=== PATIENT | female | born 1975 | race Caucasian/White ===

== ENCOUNTER 2016-10-04 17:19 | Emergency (ER) | payer OTHER ==
[~2016-10-04] VITALS: Ht 157.5 cm; Wt 77.1 kg
[~2016-10-04 17:19] MED LIST: CETI10TA16 PO; CITA20TA5 PO; CLIN300C86 PO; DICL75TA PO; DULO60CA6 PO; ESTR1TAB15 PO; HYDR25TA PO; MIRT15TA3 PO; MONT10TA6 PO; OMEP40CA5 PO; ONDA8TAB12 PO; PRAZ5CAP2 PO; SIMV10TA3 PO; TRAM50TA PO
[2016-10-04 17:35] VITALS: BP 115/71
--- NOTE | 2016-10-04 17:51 | ED.ADGEN ---
Past History Past Medical History: Anxiety, Asthma, Depression, High Cholesterol, Other Past Surgical History: Hysterectomy, Other Smoking: Cigarettes Alcohol Use: Occasionally Drug Use: None Adult General Chief Complaint Chief Complaint " ..Dr. Degroot.. sent me over to rule out appendicitis..." [facility] HPI Patient is a 40 year old female who presents with above hx and complaints of right lower quadrant pain for the past 24 hours. Patient does have history kidney stones and UTIs. No history of trauma. No history of travel. No history of bad food. Patient is having normal stools. Patient denies any dysuria. Patient normally follows Dr. Cabezas. Pt. last ate yesterday night. Did have a coke zero at 1400 hrs. Pt. had previous surgery for gallstones, tubal and ovarian cyst laparoscopic . Review of Systems Review of Systems Constitutional: Denies fever or chills [] Eyes: Denies change in visual acuity, redness, or eye pain [] HENT: Denies nasal congestion or sore throat [] Respiratory: Denies cough or shortness of breath [] Cardiovascular: No additional information not addressed in HPI [] GI: History of right lower quadrant abdominal pain. Denies, nausea, vomiting, bloody stools or diarrhea [] : Denies dysuria or hematuria [] Musculoskeletal: Denies back pain or joint pain [] Integument: Denies rash or skin lesions [] Neurologic: Denies headache, focal weakness or sensory changes [] Endocrine: Denies polyuria or polydipsia [] Family History Family History Noncontributory Current Medications Current Medications Current Medications Medications (Trade) Dose Ordered Sig/[facility] Start Time Stop Time Status Last Admin Dose Admin Famotidine (Pepcid) 20 mg 1X ONCE 10/04/16 18:15 10/04/16 18:16 DC 10/04/16 18:10 20 MG Iohexol (Omnipaque 240 Mg/ml) 50 ml STK-MED ONCE 10/04/16 18:07 10/04/16 18:08 DC Iohexol (Omnipaque 300 Mg/ml) 75 ml 1X ONCE 10/04/16 18:30 10/04/16 18:31 DC Ketorolac Tromethamine (Toradol) 30 mg 1X ONCE 10/04/16 19:15 10/04/16 19:16 DC Lactated Ringer's (Iv Lactated Ringers) 1,000 ml @ 1,000 mls/hr Q1H 10/04/16 18:00 10/04/16 19:19 DC 10/04/16 18:10 1,000 MLS/HR Ondansetron HCl (Zofran) 8 mg 1X ONCE 10/04/16 18:15 10/04/16 18:16 DC 10/04/16 18:11 8 MG Allergies Allergies Allergies Coded Allergies Type Severity Reaction Last Updated Verified Penicillins Allergy Mild Rash 08/20/15 Yes doxycycline Allergy Mild Rash 08/20/15 Yes morphine Adverse Reaction Unknown combativeness 08/20/15 Yes Physical Exam Physical Exam Constitutional: In moderately acute distress, non-toxic appearance. [] HENT: Normocephalic, atraumatic, bilateral external ears normal, oropharynx moist, no oral exudates, nose normal. [] Eyes: PERRLA, EOMI, conjunctiva normal, no discharge. [] Neck: Normal range of motion, no tenderness, supple, no stridor. [] Cardiovascular:Heart rate regular rhythm, no murmur [] Lungs & Thorax: Bilateral breath sounds equal apexes with scattered wheezes on auscultation [] Abdomen: Bowel sounds decreased, soft, right lower quadrant tenderness, no masses, no pulsatile masses. Mild rebound to right lower quadrant. She declines rectal and pelvic exam at this time. Obese. Old surgical scars. Skin: Warm, dry, no erythema, no rash. [] Back: No tenderness, no CVA tenderness. [] Extremities: No tenderness, no cyanosis, no clubbing, ROM intact, no edema. Minimal psoas or heeltap Neurologic: Alert and oriented X 3, normal motor function, normal sensory function, no focal deficits noted. [] Psychologic: Affect anxious, judgement normal, mood normal. [] Current Patient Data Vital Signs Vital Signs Date Time Temp Pulse Resp B/P Pulse Ox O2 Delivery O2 Flow Rate FiO2 10/04/16 17:35 98.7 18 18 70 Room Air Lab Results Laboratory Tests Test 10/04/16 18:06 White Blood Count 10.0x10^3/uL (4.0-11.0) Red Blood Count 4.55x10^6/uL (3.50-5.40) Hemoglobin 14.0g/dL (12.0-15.5) Hematocrit 41.9% (36.0-47.0) Mean Corpuscular Volume 92fL (79-100) Mean Corpuscular Hemoglobin 31pg (25-35) Mean Corpuscular Hemoglobin Concent 34g/dL (31-37) Red Cell Distribution Width 13.8% (11.5-14.5) Platelet Count 228x10^3/uL (140-400) Neutrophils (%) (Auto) 67% (31-73) Lymphocytes (%) (Auto) 25% (24-48) Monocytes (%) (Auto) 7% (0-9) Eosinophils (%) (Auto) 1% (0-3) Basophils (%) (Auto) 1% (0-3) Neutrophils # (Auto) 6.7x10^3uL (1.8-7.7) Lymphocytes # (Auto) 2.5x10^3/uL (1.0-4.8) Monocytes # (Auto) 0.7x10^3/uL (0.0-1.1) Eosinophils # (Auto) 0.1x10^3/uL (0.0-0.7) Basophils # (Auto) 0.0x10^3/uL (0.0-0.2) Prothrombin Time 10.4SEC (9.4-11.4) Prothrombin Time INR 1.0 (0.9-1.1) PTT 28SEC (23-33) Urine Collection Type Unknown Urine Color Yellow Urine Clarity Clear Urine pH 7.0 Urine Specific [place] 1.020 Urine Protein Neg (NEG-TRACE) Urine Glucose (UA) Negmg/dL (NEG) Urine Ketones (Stick) Negmg/dL (NEG) Urine Blood Trace (NEG) Urine Nitrite Neg (NEG) Urine Bilirubin Neg (NEG) Urine Urobilinogen Dipstick 0.2mg/dL (0.2 mg/dL) Urine Leukocyte Esterase Neg (NEG) Urine RBC 0/HPF (0-2) Urine WBC Occ/HPF (0-4) Urine Squamous Epithelial Cells Occ/LPF Urine Bacteria Few/HPF (0-FEW) Urine Mucus Slight/LPF Maternal Serum HCG Beta Subunit 4mIU/mL (0-6) Sodium Level 137mmol/L (136-145) Potassium Level 3.8mmol/L (3.5-5.1) Chloride Level 102mmol/L (98-107) Carbon Dioxide Level 26mmol/L (21-32) Anion Gap 9 (6-14) Blood Urea Nitrogen 10mg/dL (7-20) Creatinine 1.1mg/dL (0.6-1.0) H Estimated GFR (Cockcroft-Gault) 55.3 Glucose Level 86mg/dL (70-99) Calcium Level 9.3mg/dL (8.5-10.1) Total Bilirubin 0.5mg/dL (0.2-1.0) Direct Bilirubin 0.1mg/dL (0.0-0.2) Aspartate Amino Transferase (AST) 15U/L (15-37) Alanine Aminotransferase (ALT) 25U/L (14-59) Alkaline Phosphatase 85U/L (46-116) Total Protein 7.6g/dL (6.4-8.2) Albumin 4.3g/dL (3.4-5.0) Amylase Level 42U/L (25-115) Lipase 66U/L (73-393) L Urine Opiates Screen Neg (NEG) Urine Methadone Screen Neg (NEG) Urine Barbiturates Neg (NEG) Urine Phencyclidine Screen Neg (NEG) Urine Amphetamine/Methamphetamine Neg (NEG) Urine Benzodiazepines Screen Pos (NEG) Urine Cocaine Screen Neg (NEG) Urine Cannabinoids Screen Pos (NEG) Urine Ethyl Alcohol Neg (NEG) EKG EKG [] Radiology/Procedures Radiology/Procedures My interpretation of abdomen film shows no free air under the diaphragm. Nonspecific bowel gas pattern .[] CT shows no acute surgical processes. See formal report when available Course & Med Decision Making Course & Med Decision Making Pertinent Labs and Imaging studies reviewed. (See chart for details). She stay on a clear fluid diet only for the next 2 days. No solid no milk products clear fluids only to allow bowel rest. Follow-up primary care. Return if any concerns. Tylenol and ibuprofen for pain. For marked pain may take Vicoprofen up 4 times a day. Follow-up all labs and x-rays with primary care. She encouraged stop smoking. Patient encouraged fluid intake. [] Final Impression Final Impression 1. Abdomen Pain[] 2. Tobacco use 3. Marijuana use 4. Elevated creatinine Problems: Dragon Disclaimer Dragon Disclaimer This electronic medical record was generated, in whole or in part, using a voice recognition dictation system. JAYLA CHUA MD Oct 04, 2016 17:51
[2016-10-04] MEDS ORDERED: IV RINGERS SOLUTION,LACTATED 1,000 ML IV SCH (18:00)
[2016-10-04] MEDS ORDERED: IOHEXOL 240 MG/ML 50ML VIAL. ONE (18:07)
[2016-10-04] MEDS ORDERED: FAMOTIDINE 20 MG/2 ML VIAL IVP ONE (18:15)
[2016-10-04] MEDS ORDERED: ONDANSETRON PF 4 MG/2 ML VIAL. IV ONE (18:15)
[2016-10-04 18:24] LABS: BASO % 1 % (0-3); EOS # 0.1 x10^3/uL (0.0-0.7); EOS % 1 % (0-3); HEMATOCRIT 41.9 % (36.0-47.0); LYMPH # 2.5 x10^3/uL (1.0-4.8); LYMPH % 25 % (24-48); MEAN CORPUSCULAR HEMOGLOBIN 31 pg (25-35); MEAN CORPUSCULAR HGB CONC 34 g/dL (31-37); MEAN CORPUSCULAR VOLUME 92 fL (79-100); MONO # 0.7 x10^3/uL (0.0-1.1); MONO % 7 % (0-9); NEUT # 6.7 x10^3uL (1.8-7.7); NEUT % 67 % (31-73); PLATELET COUNT 228 x10^3/uL (140-400); RED BLOOD COUNT 4.55 x10^6/uL (3.50-5.40); RED CELL DISTRIBUTION WIDTH 13.8 % (11.5-14.5)
[2016-10-04] MEDS ORDERED: IOHEXOL 300 MG/ML 75 ML VIAL. IV ONE (18:30)
[2016-10-04 18:33] LABS: BARBITURATES NEG (NEG); BENZODIAZEPINES POS (NEG); CANNABINOIDS POS (NEG); COCAINE NEG (NEG); METHADONE NEG (NEG); OPIATES NEG (NEG); PHENCYCLIDINE NEG (NEG)
[2016-10-04 18:34] LABS: BACTERIA,URINE FEW /HPF (0-FEW); BILIRUBIN,URINE NEG (NEG); CLARITY,URINE CLEAR; COLOR,URINE YELLOW; GLUCOSE,URINE NEG (NEG); NITRITE,URINE NEG (NEG); RBC,URINE 0 /HPF (0-2); SQUAMOUS EPITHELIAL CELL,UR OCC /LPF; UROBILINOGEN,URINE 0.2 mg/dL (0.2 mg/dL); WBC,URINE OCC /HPF (0-4)
[2016-10-04 18:36] LABS: AMPHETAMINE/METHAMPHETAMINE NEG (NEG)
--- NOTE | 2016-10-04 18:48 | RAD ---
PROCEDURE CT abdomen and pelvis without intravenous contrast. HISTORY Right flank pain. TECHNIQUE Helical CT of the abdomen and pelvis was performed without intravenous or oral contrast. Exposure: One or more of the following individualized dose reduction techniques were utilized for this examination: 1. Automated exposure control. 2. Adjustment of the mA and/or kV according to patient size. 3. Use of iterative reconstruction technique. COMPARISON CT abdomen pelvis March 13, 2015. FINDINGS Evaluation of solid organs is limited by lack of intravenous contrast. Evaluation of enteric structures may be limited by lack of oral contrast. Liver, spleen, pancreas, gallbladder, and bilateral adrenal glands are unremarkable. Bilateral kidneys and ureters free of stone or obstruction. No bowel obstruction or inflammation is seen. Appendix is without inflammation. Urinary bladder is unremarkable. Uterus is absent. No free air free fluid is seen in the abdomen or pelvis. IMPRESSION No acute abnormality identified in the abdomen or pelvis. No evidence of urinary stone. Electronically signed by: Charles Lowe MD (Oct 04, 2016 18:47:16)
[2016-10-04 18:58] LABS: ALBUMIN 4.3 g/dL (3.4-5.0); CALCIUM 9.3 mg/dL (8.5-10.1); CREATININE 1.1 mg/dL (0.6-1.0); DIRECT BILIRUBIN 0.1 mg/dL (0.0-0.2); GFR 55.3; POTASSIUM 3.8 mmol/L (3.5-5.1); TOTAL BILIRUBIN 0.5 mg/dL (0.2-1.0); TOTAL PROTEIN 7.6 g/dL (6.4-8.2)
[2016-10-04] MEDS ORDERED: ONDA8TAB12 PO (19:03)
[2016-10-04] MEDS ORDERED: HYDR-79 PO (19:03)
[2016-10-04] MEDS ORDERED: KETOROLAC 30 MG/ML VIAL. IV ONE (19:15)
--- NOTE | 2016-10-05 09:05 | RAD ---
Acute abdomen series with chest, 3 views, 10/04/2016: History: Abdominal and right flank pain The abdominal gas pattern is unremarkable without evidence of obstruction. No free air is seen in the abdomen. There is no evidence of organomegaly or abnormal abdominal calcification. The heart size is normal. The lungs are clear. There is no evidence of pleural fluid. IMPRESSION: No acute abdominal abnormality is detected.
== END 2016-10-04 19:14 | disposition home or self-care (01) ==
LOC: ER 17:19
DX: R10.31 Right lower quadrant pain (principal); E78.00 Pure hypercholesterolemia, unspecified; J45.909 Unspecified asthma, uncomplicated; F12.10 Cannabis abuse, uncomplicated; F17.210 Nicotine dependence, cigarettes, uncomplicated; Z90.710 Acquired absence of both cervix and uterus; Z87.442 Personal history of urinary calculi; Z88.5 Allergy status to narcotic agent; Z88.0 Allergy status to penicillin; Z88.1 Allergy status to other antibiotic agents
CPT/HCPCS: 36415; 74022; 74176; 80048; 80076; 80305; 81001; 82150; 83690; 84702; 85027; 85610; 85730; 96361; 96374; 96375; 99285; J2405; J7120; S0028; G0481

== ENCOUNTER 2017-03-02 09:31 | Emergency (ER) | payer SELFPAY ==
[~2017-03-02] VITALS: Ht 157.5 cm; Wt 67.6 kg
[~2017-03-02 09:31] MED LIST changes: +CLIN300C8 PO; -CLIN300C86 PO; +HYDR-79 PO
[2017-03-02] MEDS ORDERED: predniSONE 10 MG TABLET PO ONE (10:00)
[2017-03-02] MEDS ORDERED: IPRATRPIUM/ALBUTEROL 0.5/2.5MG 3 ML NEBU. NEB ONE (10:00)
[2017-03-02] MEDS ORDERED: ALBU8.5H8 INH (10:16)
[2017-03-02] MEDS ORDERED: PRED50TA PO (10:16)
--- NOTE | 2017-03-02 10:16 | PHYS DOC ---
Past History Past Medical History: Anxiety, Asthma, Depression, High Cholesterol, Other Past Surgical History: Hysterectomy, Other Smoking: Cigarettes Alcohol Use: None Drug Use: None Adult General Chief Complaint Chief Complaint: COUGH HPI HPI This is a pleasant 41-year-old female presenting to the emergency department with a cough and wheezing over the past 7 days. She reports associated sinus pressure in the front of her head along with bilateral earache and feeling "congested." Her cough is intermittent it is nonproductive she denies any pain in her chest. She has mild pain/pressure in her sinuses that is intermittent nonradiating without leaving factors. She denies having a fever at home or chills. Review of systems is negative for chest pain abdominal pain nausea vomiting diaphoresis fevers or chills. All other review of systems is negative unless otherwise noted in history of present illness. ED course: 41-year-old female presenting to the emergency department today with cough and sinus related congestion. Triage vital signs show the patient to be afebrile here with mild increased heart rate. Pertinent physical exam findings show the patient to have diffuse wheezing throughout all lung [place]. She is breathing comfortably on room air and is not hypoxic. Otherwise she has a nontender abdomen and the remainder of her exam is unremarkable including normal appearing tympanic membranes bilaterally in mild pain to palpation of the frontal sinus. I recommend nasal washes and Flonase for her sinus pressure for of probable viral acute sinusitis. No evidence of otitis media. She does have diffuse wheezing suggestive of an acute asthma exacerbation for which I prescribed the patient prednisone along with the nebulized albuterol and ipratropium here in the emergency department. On reexamination the patient's wheezing was much improved. She was subsequent discharged home with albuterol and prednisone short burst. X-ray obtained which did not show any evidence of pneumonia. The patient was then discharged home in stable condition to follow up with their primary care physician over the next 2-3 days. They were to return if their symptoms worsened or if they were concerned for any reason. Face -to-face discharge instructions and return precautions were given. Patient's questions were answered to their satisfaction. Patient is comfortable plan. Review of Systems Review of Systems SEE ABOVE. Current Medications Current Medications Current Medications Medications (Trade) Dose Ordered Sig/[facility] Start Time Stop Time Status Last Admin Dose Admin Albuterol/ Ipratropium (Duoneb) 3 ml 1X ONCE 03/02/17 10:00 03/02/17 10:01 DC 03/02/17 09:59 3 ML Prednisone (Prednisone) 50 mg 1X ONCE 03/02/17 10:00 03/02/17 10:01 DC Allergies Allergies Allergies Coded Allergies Type Severity Reaction Last Updated Verified Penicillins Allergy Mild Rash 08/20/15 Yes doxycycline Allergy Mild Rash 08/20/15 Yes morphine Adverse Reaction Unknown combativeness 08/20/15 Yes Physical Exam Physical Exam See above Constitutional: Well developed, well nourished, no acute distress, non-toxic appearance. [] HENT: Normocephalic, atraumatic, bilateral external ears normal, oropharynx moist, no oral exudates, nose normal. []See above Eyes: PERRLA, EOMI, conjunctiva normal, no discharge. [] Neck: Normal range of motion, no tenderness, supple, no stridor. [] Cardiovascular:Heart rate regular rhythm, no murmur [] Lungs & Thorax: See above Abdomen: Bowel sounds normal, soft, no tenderness, no masses, no pulsatile masses. [] Skin: Warm, dry, no erythema, no rash. [] Back: No tenderness, no CVA tenderness. [] Extremities: No tenderness, no cyanosis, no clubbing, ROM intact, no edema. [] Neurologic: Alert and oriented X 3, normal motor function, normal sensory function, no focal deficits noted. [] Psychologic: Affect normal, judgement normal, mood normal. [] Current Patient Data Vital Signs Vital Signs Date Time Temp Pulse Resp B/P (MAP) Pulse Ox O2 Delivery O2 Flow Rate FiO2 03/02/17 09:59 96 Room Air EKG EKG [] Radiology/Procedures Radiology/Procedures [] Course & Med Decision Making Course & Med Decision Making Pertinent Labs and Imaging studies reviewed. (See chart for details) [] Dragon Disclaimer Dragon Disclaimer This chart was dictated in whole or in part using Voice Recognition software in a busy, high-work load, and often noisy Emergency Department environment. It may contain unintended and wholly unrecognized errors or omissions. Departure Departure: Impression: Primary Impression: Acute asthma exacerbation Additional Impressions: Sinusitis Congestion of both ears Disposition: HOME, SELF-CARE Condition: STABLE Referrals: PCP,NO (PCP) Patient Instructions: Asthma, Adult, Cough, Adult, Sinusitis Additional Instructions: Thank you for allowing us to participate in your care today. Followup with your primary care physician in 3 days if your symptoms do not improve. Call your Primary Doctor tomorrow and inform them of your visit today. If you do not have a primary care provider you can ask for a list of our primary care providers. Return to the emergency department you have any new or concerning findings. This should be evaluated by the primary care physician and any necessary consulting services for continued management within a few days after discharge. Return to emergency room if you have any new or concerning symptoms including but not limited to fever, chills, nausea, vomiting, intractable pain, any new rashes, chest pain, shortness of air, uncontrolled bleeding, difficulty breathing, and/or vision loss. Scripts Prednisone (PREDNISONE) 50 Mg Tablet 1 TAB PO DAILY, #4 TAB You received this medication in the emergency room today. You will starting your next dose tomorrow. Prov: YOHAN WEINBERG MD 03/02/17 Albuterol Sulfate (PROAIR HFA INHALER) 8.5 Gm Hfa.aer.ad 1 PUFF INH PRN Q6HRS Y for SHORTNESS OF BREATH, #1 INHALER 0 Refills Prov: YOHAN WEINBERG MD 03/02/17 Problem Qualifiers YOHAN WEINBERG MD Mar 02, 2017 10:16
--- NOTE | 2017-03-02 10:19 | RAD ---
PA and lateral chest radiographs 03/02/2017 Clinical History: Productive cough. PA and lateral digital radiographs of the chest were obtained. Comparison study is dated 10/04/2016. The cardiac and mediastinal silhouettes are within normal limits in size and configuration. No pulmonary infiltrate is seen. No pleural effusion or pneumothorax is noted. The osseous structures are grossly intact. Impression: No radiographic evidence of active cardiopulmonary disease.
[2017-03-02 10:25] VITALS: BP 123/68
== END 2017-03-02 10:25 | disposition home or self-care (01) ==
LOC: ER 09:31
DX: J45.901 Unspecified asthma with (acute) exacerbation (principal); H83.8X3 Other specified diseases of inner ear, bilateral; E78.00 Pure hypercholesterolemia, unspecified; F17.210 Nicotine dependence, cigarettes, uncomplicated; Z88.1 Allergy status to other antibiotic agents; Z88.5 Allergy status to narcotic agent; Z88.0 Allergy status to penicillin
CPT/HCPCS: 71020; 94640; 99284; J7512; J7620

== ENCOUNTER 2017-06-19 19:44 | Emergency (ER) | payer SELFPAY ==
[~2017-06-19] VITALS: Ht 157.5 cm; Wt 69.4 kg
[~2017-06-19 19:44] MED LIST changes: +ALBU8.5H8 INH; +PRED50TA PO
[2017-06-19 19:50] VITALS: BP 133/49
--- NOTE | 2017-06-19 19:54 | ED.ADGEN ---
Past History Past Medical History: Anxiety, Asthma, Depression, GERD, High Cholesterol, Other Past Surgical History: Hysterectomy, Other Smoking: Cigarettes Alcohol Use: None Drug Use: None Adult General Chief Complaint Chief Complaint " I fell on monday.. and my Lt hip, thigh, back and Lt knee still hurt...".. " I was hanging [employer] lights..."and tripped over the wire.." HPI HPI Patient is a 41 year old female who presents with Lt knee, hip, back, flank and shoulder pain from fall or tripping on [place] decorations this monday. Distal neurovascular intact. There is findings of contusions to areas of fall. Patient is ambulatory without problems. There is some para- Spinal lumbar spasms. No problems with defecation or urination. Review of Systems Review of Systems Constitutional: Denies fever or chills [] Eyes: Denies change in visual acuity, redness, or eye pain [] HENT: Denies nasal congestion or sore throat [] Respiratory: Denies cough or shortness of breath [] Cardiovascular: No additional information not addressed in HPI [] GI: Denies abdominal pain, nausea, vomiting, bloody stools or diarrhea [] : Denies dysuria or hematuria [] Musculoskeletal: Complains of left shoulder, left flank, left hip, left thigh , back pain . Integument: Denies rash or skin lesions [] Neurologic: Denies headache, focal weakness or sensory changes [] Endocrine: Denies polyuria or polydipsia [] All other systems were reviewed and found to be within normal limits, except as documented in this note. Family History Family History Noncontributory Current Medications Current Medications Current Medications Medications (Trade) Dose Ordered Sig/[facility] Start Time Stop Time Status Last Admin Dose Admin Ketorolac Tromethamine (Toradol) 60 mg 1X ONCE 06/19/17 21:30 06/19/17 21:31 DC 06/19/17 22:10 60 MG Orphenadrine Citrate (Norflex) 60 mg 1X ONCE 06/19/17 21:30 06/19/17 21:31 DC 06/19/17 22:10 60 MG Allergies Allergies Allergies Coded Allergies Type Severity Reaction Last Updated Verified Penicillins Allergy Mild Rash 08/20/15 Yes doxycycline Allergy Mild Rash 08/20/15 Yes morphine Adverse Reaction Unknown combativeness 08/20/15 Yes Physical Exam Physical Exam Constitutional: Mild to moderate distress, non-toxic appearance. [] HENT: Normocephalic, atraumatic, bilateral external ears normal, oropharynx moist, no oral exudates, nose normal. [] Eyes: PERRLA, EOMI, conjunctiva normal, no discharge. [] Neck: Normal range of motion, no tenderness, supple, no stridor. [] Cardiovascular:Heart rate regular rhythm, no murmur [] Lungs & Thorax: Bilateral breath sounds equal scattered wheezes auscultation [] Abdomen: Bowel sounds normal, soft, no tenderness, no masses, no pulsatile masses. Old surgery scar. Except Contusion left hip and left flank. Skin: Warm, dry, no erythema, no rash. [] Back: Lumbar muscle tenderness, no CVA tenderness. [] Extremities: No tenderness, no cyanosis, no clubbing, ROM intact, no edema. Except Left shoulder contusion. Left thigh contusion. Left hip contusion and left knee contusion Neurologic: Alert and oriented X 3, normal motor function, normal sensory function, no focal deficits noted. [DTRs 2 patella and brachial Psychologic: Affect anxious , judgement normal, mood normal. [] Current Patient Data Vital Signs Vital Signs Date Time Temp Pulse Resp B/P (MAP) Pulse Ox O2 Delivery O2 Flow Rate FiO2 06/19/17 19:50 97.9 94 22 99 Room Air EKG EKG [] Radiology/Procedures Radiology/Procedures Interpretation of x-ray films of shoulder, pelvis and hip, show no fracture or dislocation. Does have degenerative joint changes. CT of lumbar shows no obvious acute compression fracture does have findings of degenerative joint changes.[] Course & Med Decision Making Course & Med Decision Making Pertinent Labs and Imaging studies reviewed. (See chart for details). Ice packs when necessary. Take Tylenol and ibuprofen for pain. Follow-up primary care. May take Vicoprofen up 4 times a day for marked discomfort. Must follow-up primary care. [] Final Impression Final Impression 1. Contusion[] left shoulder, left hip, left thigh, left flank, left shoulder 2. Strain lower back Problems: Dragon Disclaimer Dragon Disclaimer This electronic medical record was generated, in whole or in part, using a voice recognition dictation system. JAYLA CHUA MD Jun 19, 2017 19:54
--- NOTE | 2017-06-19 21:16 | RAD ---
CT lumbar spine without contrast History: Pain status post fall Axial helical images of the lumbar spine were obtained without contrast. Axial, coronal and sagittal reconstruction was performed. Findings: The vertebral bodies are aligned. There is no loss of vertebral body stature. Evaluation of the central canal is limited without contrast. There is no evidence of significant central or neuroforaminal stenosis. Impression: No acute findings. PQRS Compliance Statement: One or more of the following individualized dose reduction techniques were utilized for this examination: 1. Automated exposure control 2. Adjustment of the mA and/or kV according to patient size 3. Use of iterative reconstruction technique Electronically signed by: Tarik Kimble III, MD (06/19/2017 9:14 PM) [facility]
[2017-06-19] MEDS ORDERED: ORPHENADRINE CITRATE 60 MG/2 ML VIAL. IM ONE (21:30)
[2017-06-19] MEDS ORDERED: KETOROLAC 60 MG/2 ML VIAL. IM ONE (21:30)
[2017-06-19] MEDS ORDERED: HYDR-79 PO (21:36)
--- NOTE | 2017-06-20 07:56 | RAD ---
Knee x-rays Indication: Injury on 06/18/2017. Severe left knee pain Technique: 4 views of the left knee Comparison: None Findings: No acute fracture or dislocation. No joint effusion. No soft tissue abnormality. Impression: No acute findings.
--- NOTE | 2017-06-20 08:06 | RAD ---
Pelvic x-ray Indication:, Technique: Single AP view of the pelvis Comparison: None Findings: No acute fracture or dislocation on this single view provided. SI joints within normal limits. No soft tissue abnormality. Impression: No acute findings.
--- NOTE | 2017-06-20 08:06 | RAD ---
Hip x-rays Indication: Injury Technique: 2 views of the left hip joint Comparison: None Findings: No acute fracture or dislocation. No soft tissue abnormality. Impression: As above.
== END 2017-06-19 22:17 | disposition home or self-care (01) ==
LOC: ER 19:44
DX: S39.012A Strain of muscle, fascia and tendon of lower back, initial encounter (principal); S40.012A Contusion of left shoulder, initial encounter; S70.02XA Contusion of left hip, initial encounter; S70.12XA Contusion of left thigh, initial encounter; S30.1XXA Contusion of abdominal wall, initial encounter; E78.00 Pure hypercholesterolemia, unspecified; K21.9 Gastro-esophageal reflux disease without esophagitis; J45.909 Unspecified asthma, uncomplicated; F41.9 Anxiety disorder, unspecified; F32.9 Major depressive disorder, single episode, unspecified; F17.210 Nicotine dependence, cigarettes, uncomplicated; Z88.0 Allergy status to penicillin; Z88.1 Allergy status to other antibiotic agents; Z88.5 Allergy status to narcotic agent; W18.09XA Striking against other object with subsequent fall, initial encounter; Y93.89 Activity, other specified; Y99.8 Other external cause status; Y92.89 Other specified places as the place of occurrence of the external cause
CPT/HCPCS: 72131; 72170; 73502; 73564; 96372; 99284; J1885; J2360

== ENCOUNTER 2018-05-04 16:44 | Emergency (ER) | payer OTHER ==
[~2018-05-04 16:44] MED LIST changes: -CITA20TA5 PO; +CITA20TA6 PO
[2018-05-04 16:50] VITALS: BP 128/76
--- NOTE | 2018-05-04 17:20 | PHYS DOC ---
Past History Past Medical History: Anxiety, Asthma, Depression, GERD, High Cholesterol, Other Past Surgical History: Hysterectomy, Other Smoking: Cigarettes Alcohol Use: None Drug Use: None Adult General Chief Complaint Chief Complaint: MEDICATION REFILL HPI HPI 42-year-old female presents with left knee pain. The patient had a knee scope with arthroscopic repair and bone spur removal on May 01. She was discharged with 30 [place] 5/325. Patient has been taking 2 every 5 hours and she is out of them. She is away from the location was the surgeon is. They offered to give her more medication but she had to come to absent. The patient's car is not working. She was unable to get absent. Her local physician told her she would have to come to the emergency room because he did not have any family appointments. She denies fever or chills. She is only here for medication refill. Review of Systems Review of Systems Constitutional: Denies fever or chills [] Eyes: Denies change in visual acuity, redness, or eye pain [] HENT: Denies nasal congestion or sore throat [] Respiratory: Denies cough or shortness of breath [] Cardiovascular: No additional information not addressed in HPI [] GI: Denies abdominal pain, nausea, vomiting, bloody stools or diarrhea [] : Denies dysuria or hematuria [] Musculoskeletal: Left knee pain[] Integument: Denies rash or skin lesions [] Neurologic: Denies headache, focal weakness or sensory changes [] Endocrine: Denies polyuria or polydipsia [] All other systems were reviewed and found to be within normal limits, except as documented in this note. Allergies Allergies Allergies Coded Allergies Type Severity Reaction Last Updated Verified Penicillins Allergy Mild Rash 08/20/15 Yes doxycycline Allergy Mild Rash 08/20/15 Yes morphine Adverse Reaction Unknown combativeness 08/20/15 Yes Physical Exam Physical Exam Constitutional: Well developed, well nourished, no acute distress, non-toxic appearance. [] HENT: Normocephalic, atraumatic, bilateral external ears normal, oropharynx moist, no oral exudates, nose normal. [] Eyes: PERRLA, EOMI, conjunctiva normal, no discharge. [] Neck: Normal range of motion, no tenderness, supple, no stridor. [] Cardiovascular:Heart rate regular rhythm, no murmur [] Lungs & Thorax: Bilateral breath sounds clear to auscultation [] Abdomen: Bowel sounds normal, soft, no tenderness, no masses, no pulsatile masses. [] Skin: Warm, dry, no erythema, no rash. [] Back: No tenderness, no CVA tenderness. [] Extremities: Ecchymosis around the left knee. Mild swelling. Consistent with recent surgery.[] Neurologic: Alert and oriented X 3, normal motor function, normal sensory function, no focal deficits noted. [] Psychologic: Affect normal, judgement normal, mood normal. [] EKG EKG [] Radiology/Procedures Radiology/Procedures [] Course & Med Decision Making Course & Med Decision Making Pertinent Labs and Imaging studies reviewed. (See chart for details) I reviewed the patient's narcotic online database and found her prescription history to be accurate to what she told me. I informed her that I'm only able to give her a short prescription of 10 pills and that she must make them last. She states she will try to take one of the time and spread out the time. I will discharge her with 10 [place] 5/325. She is stable for discharge at this time. [] Dragon Disclaimer Dragon Disclaimer This electronic medical record was generated, in whole or in part, using a voice recognition dictation system. Departure Departure: Referrals: NATI GUADALUPE MD (PCP) NATALI ARROYO DO May 04, 2018 17:20
[2018-05-04] MEDS ORDERED: HYDR-971 PO (17:30)
== END 2018-05-04 17:32 | disposition home or self-care (01) ==
LOC: ER 16:44
DX: M25.562 Pain in left knee (principal); G89.18 Other acute postprocedural pain; F41.9 Anxiety disorder, unspecified; J45.909 Unspecified asthma, uncomplicated; F32.9 Major depressive disorder, single episode, unspecified; K21.9 Gastro-esophageal reflux disease without esophagitis; E78.00 Pure hypercholesterolemia, unspecified; F17.210 Nicotine dependence, cigarettes, uncomplicated; Z88.0 Allergy status to penicillin; Z88.1 Allergy status to other antibiotic agents; Z88.5 Allergy status to narcotic agent
CPT/HCPCS: 99283

== ENCOUNTER 2018-10-26 15:16 | Emergency (ER) | payer OTHER ==
[~2018-10-26] VITALS: Ht 157.5 cm; Wt 77.1 kg
[~2018-10-26 15:16] MED LIST changes: +ALBU2.5V8 INH; -ALBU8.5H8 INH; +HYDR-1179 PO; +HYDR-3165 PO; -HYDR-79 PO
--- NOTE | 2018-10-26 15:46 | PHYS DOC ---
Past History Past Medical History: Anxiety, Asthma, Depression, GERD, High Cholesterol, Other Past Surgical History: Hysterectomy, Other Smoking: Cigarettes Alcohol Use: None Drug Use: None Adult General Chief Complaint Chief Complaint: BACK PAIN - NO INJURY HPI HPI 43-year-old female presents with sudden onset back pain. Patient states that she had sudden back pain that woke her from her sleep between her shoulder blades. This happened at 4 AM. It has continued to bother her all day so she came emergency room. Patient states it hurts more with deep breathing, but she does not feel short of breath. She cannot think of anything that she did yesterday that would've caused her to have pain. She denies any recent trauma. She has no cardiac history. She is a cigarette smoker. She denies fever or chills. Review of Systems Review of Systems Constitutional: Denies fever or chills [] Eyes: Denies change in visual acuity, redness, or eye pain [] HENT: Denies nasal congestion or sore throat [] Respiratory: Denies cough or shortness of breath [] Cardiovascular: No additional information not addressed in HPI [] GI: Denies abdominal pain, nausea, vomiting, bloody stools or diarrhea [] : Denies dysuria or hematuria [] Musculoskeletal: Thoracic back pain[] Integument: Denies rash or skin lesions [] Neurologic: Denies headache, focal weakness or sensory changes [] Endocrine: Denies polyuria or polydipsia [] All other systems were reviewed and found to be within normal limits, except as documented in this note. Allergies Allergies Allergies Coded Allergies Type Severity Reaction Last Updated Verified Penicillins Allergy Mild Rash 08/20/15 Yes doxycycline Allergy Mild Rash 08/20/15 Yes morphine Adverse Reaction Unknown combativeness 08/20/15 Yes Physical Exam Physical Exam Constitutional: Well developed, well nourished, no acute distress, non-toxic appearance. [] HENT: Normocephalic, atraumatic, bilateral external ears normal, oropharynx moist, no oral exudates, nose normal. [] Eyes: PERRLA, EOMI, conjunctiva normal, no discharge. [] Neck: Normal range of motion, no tenderness, supple, no stridor. [] Cardiovascular:Heart rate regular rhythm, no murmur [] Lungs & Thorax: Bilateral breath sounds clear to auscultation [] Abdomen: Bowel sounds normal, soft, no tenderness, no masses, no pulsatile masses. [] Skin: Warm, dry, no erythema, no rash. [] Back: No tenderness, no CVA tenderness. [] Extremities: No tenderness, no cyanosis, no clubbing, ROM intact, no edema. [] Neurologic: Alert and oriented X 3, normal motor function, normal sensory function, no focal deficits noted. [] Psychologic: Affect normal, judgement normal, mood normal. [] Current Patient Data Vital Signs Vital Signs Date Time Temp Pulse Resp B/P (MAP) Pulse Ox O2 Delivery O2 Flow Rate FiO2 10/26/18 15:30 98.3 77 18 99 Room Air EKG EKG Sinus rhythm, rate 69, normal axis, no ST elevations or depressions.[] Radiology/Procedures Radiology/Procedures [] Impressions: AP and Lateral Views of the Chest 10/26/2018 4:45 PM Indication: SHORT OF BREATH Comparison: Chest radiograph March 02, 2017 Findings: There is no focal consolidation or infiltrate identified. The cardiomediastinal silhouette is within normal limits. There is no evidence of pneumothorax or pleural effusion. No acute osseous abnormalities are identified. Impression: No evidence of acute cardiopulmonary process. Electronically signed by: Kavin Pena MD (10/26/2018 3:59 PM) [id number] DICTATED AND SIGNED BY: KAVIN PENA MD DATE: 10/26/18 1559 CC: NATALI ARROYO DO; NATI GUADALUPE MD ~ Course & Med Decision Making Course & Med Decision Making Pertinent Labs and Imaging studies reviewed. (See chart for details) The patient's chest x-ray is unremarkable. Her labs are unremarkable. Her EKG is unremarkable. The patient has musculoskeletal pain and is just unable to identify the inciting event. I will advise insulin therapies. She is stable for discharge at this time. [] Dragon Disclaimer Dragon Disclaimer This electronic medical record was generated, in whole or in part, using a voice recognition dictation system. Departure Departure: Impression: Primary Impression: Thoracic back pain Disposition: HOME, SELF-CARE Condition: STABLE Referrals: NATI GUADALUPE MD (PCP) Patient Instructions: Thoracic Strain, [id number] Problem Qualifiers Primary Impression: Thoracic back pain Chronicity: acute Back pain laterality: midline Qualified Codes: M54.6 - Pain in thoracic spine NATALI ARROYO DO Oct 26, 2018 15:46
--- NOTE | 2018-10-26 16:02 | RAD ---
AP and Lateral Views of the Chest 10/26/2018 4:45 PM Indication: SHORT OF BREATH Comparison: Chest radiograph March 02, 2017 Findings: There is no focal consolidation or infiltrate identified. The cardiomediastinal silhouette is within normal limits. There is no evidence of pneumothorax or pleural effusion. No acute osseous abnormalities are identified. Impression: No evidence of acute cardiopulmonary process. Electronically signed by: Kavin Salvador MD (10/26/2018 3:59 PM) [id number]
[2018-10-26 16:08] LABS: BASO # 0.1 x10^3/uL (0.0-0.2); BASO % 1 % (0-3); EOS # 0.3 x10^3/uL (0.0-0.7); EOS % 4 % (0-3); HEMATOCRIT 41.9 % (36.0-47.0); HEMOGLOBIN 14.2 g/dL (12.0-15.5); LYMPH # 2.4 x10^3/uL (1.0-4.8); LYMPH % 35 % (24-48); MEAN CORPUSCULAR HEMOGLOBIN 32 pg (25-35); MEAN CORPUSCULAR HGB CONC 34 g/dL (31-37); MEAN CORPUSCULAR VOLUME 93 fL (79-100); MONO # 0.6 x10^3/uL (0.0-1.1); MONO % 9 % (0-9); NEUT # 3.7 x10^3uL (1.8-7.7); NEUT % 52 % (31-73); PLATELET COUNT 300 x10^3/uL (140-400); RED CELL DISTRIBUTION WIDTH 13.8 % (11.5-14.5); WHITE BLOOD COUNT 7.1 x10^3/uL (4.0-11.0)
[2018-10-26 16:31] LABS: ALBUMIN 3.7 g/dL (3.4-5.0); CALCIUM 9.3 mg/dL (8.5-10.1); CREATININE 1.1 mg/dL (0.6-1.0); GFR 54.5; POTASSIUM 4.2 mmol/L (3.5-5.1); TOTAL BILIRUBIN 0.3 mg/dL (0.2-1.0); TOTAL PROTEIN 7.3 g/dL (6.4-8.2)
[2018-10-26] MEDS ORDERED: CYCL-331 PO (17:10)
[2018-10-26 17:12] VITALS: BP 110/70
--- NOTE | 2018-10-27 18:19 | EKG ---
[address] [address] Test Date: 2018-10-26 Test Time: 16:24:58 Pat Name: RIVAS VICENTE Department: Room: Gender: F Claims Account Specialist: : [id number] Requested By: NATALI ARROYO Order Number: [id number] Reading MD: Charlie Oglesby MD Measurements Intervals [place] Rate: 69 P: 54 VA: 160 QRS: 24 QRSD: 88 T: 20 QT: 432 QTc: 465 Interpretive Statements SINUS RHYTHM Electronically Signed On 10-30-2018 15:11:45 CDT by Charlie Oglesby MD
== END 2018-10-26 17:13 | disposition home or self-care (01) ==
LOC: ER 15:16
DX: M54.6 Pain in thoracic spine (principal); F41.9 Anxiety disorder, unspecified; J45.909 Unspecified asthma, uncomplicated; F32.9 Major depressive disorder, single episode, unspecified; K21.9 Gastro-esophageal reflux disease without esophagitis; E78.00 Pure hypercholesterolemia, unspecified; F17.210 Nicotine dependence, cigarettes, uncomplicated; Z88.0 Allergy status to penicillin; Z88.1 Allergy status to other antibiotic agents; Z88.5 Allergy status to narcotic agent
CPT/HCPCS: 36415; 71046; 80053; 83690; 84484; 85025; 93005; 99284

== ENCOUNTER 2019-09-05 11:04 | Emergency (ER) | payer OTHER ==
[~2019-09-05] VITALS: Ht 157.5 cm; Wt 80.0 kg
[~2019-09-05 11:04] MED LIST changes: +CYCL-331 PO; -MONT10TA6 PO; +MONT10TA80 PO; +OMEP40CA45 PO; -OMEP40CA5 PO; +SIMV10TA15 PO; -SIMV10TA3 PO
--- NOTE | 2019-09-05 12:07 | RAD ---
Three-view lumbar spine dated 09/05/2019. No comparison available. Clinical data indication: Lumbar pain. History of osteoporosis. Evaluate for compression fracture. FINDINGS: 3 views lumbar spine show normal sagittal alignment. Vertebral body heights are maintained. Mild endplate hypertrophic changes throughout. Mild arthrosis lower lumbar apophyseal joints. IMPRESSION: 1. No acute radiographic abnormality. 2. Mild lower lumbar spondylosis. Electronically signed by: Charles Live MD (09/05/2019 12:04 PM) [facility]
--- NOTE | 2019-09-05 12:33 | PHYS DOC ---
Past History Past Medical History: Anxiety, Asthma, Depression, GERD, High Cholesterol, Other Past Surgical History: Hysterectomy Smoking: Cigarettes Alcohol Use: Rarely Drug Use: None Adult General Chief Complaint Chief Complaint: BACK PAIN OR INJURY HPI HPI Patient is a 43-year-old female back pain. 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 She has no bowel or bladder incontinence no numbness tingling or weakness of the lower extremities no abdominal pain no fever no direct blunt trauma using [id number] agents with minimal relief. Review of Systems Review of Systems Constitutional: Denies fever or chills [] Eyes: Denies change in visual acuity, redness, or eye pain [] HENT: Denies nasal congestion or sore throat [] Respiratory: Denies cough or shortness of breath [] Cardiovascular: No additional information not addressed in HPI [] GI: Denies abdominal pain, nausea, vomiting, bloody stools or diarrhea [] : Denies dysuria or hematuria [] All other systems were reviewed and found to be within normal limits, except as documented in this note. Current Medications Current Medications Current Medications Medications (Trade) Dose Ordered Sig/Uriah Start Time Stop Time Status Last Admin Dose Admin Ketorolac Tromethamine (Toradol Im) 30 mg 1X ONCE 09/05/19 12:30 09/05/19 12:31 UNV Allergies Allergies Allergies Coded Allergies Type Severity Reaction Last Updated Verified Penicillins Allergy Mild Rash 08/20/15 Yes doxycycline Allergy Mild Rash 08/20/15 Yes morphine Adverse Reaction Unknown combativeness 08/20/15 Yes Physical Exam Physical Exam Constitutional: Well developed, well nourished, no acute distress, non-toxic appearance. [] HENT: Normocephalic, atraumatic, bilateral external ears normal, oropharynx moist, no oral exudates, nose normal. [] Eyes: PERRLA, EOMI, conjunctiva normal, no discharge. [] Neck: Normal range of motion, no tenderness, supple, no stridor. [] Cardiovascular:Heart rate regular rhythm, no murmur [] Lungs & Thorax: Bilateral breath sounds clear to auscultation [] Abdomen: Bowel sounds normal, soft, no tenderness, no masses, no pulsatile masses. [] Skin: Warm, dry, no erythema, no rash. [] Back paraspinous tenderness on the right as well as some midline tenderness at L2-L3 area Extremities: No tenderness, no cyanosis, no clubbing, ROM intact, no edema. [] Neurologic: Alert and oriented X 3, normal motor function, normal sensory function, no focal deficits noted. [] Psychologic: Affect normal, judgement normal, mood normal. [] Current Patient Data Vital Signs Vital Signs Date Time Temp Pulse Resp B/P (MAP) Pulse Ox O2 Delivery O2 Flow Rate FiO2 09/05/19 11:09 98.0 90 18 146/86 (106) 96 Room Air EKG EKG [] Radiology/Procedures Radiology/Procedures [] Course & Med Decision Making Course & Med Decision Making Pertinent Labs and Imaging studies reviewed. (See chart for details) []Did an x-ray due to history of osteopenia and reported prior history of fractures from coughing. X-ray negative patient reassured no neurologic symptoms or findings on examination either. Recommended [id number] agents gave a dose of Toradol. Patient is having no urinary symptoms Dragon Disclaimer Dragon Disclaimer This electronic medical record was generated, in whole or in part, using a voice recognition dictation system. Departure Departure: Impression: Primary Impression: Back pain Disposition: 01 HOME, SELF-CARE Condition: STABLE Patient Instructions: Back Pain, Adult, [id number] SIMEON BARNETT MD Sep 05, 2019 12:33
[2019-09-05] MEDS ORDERED: KETOROLAC 30 MG/ML VIAL. ONE (12:41)
[2019-09-05 12:58] VITALS: BP 124/80
[2019-09-05] MEDS ORDERED: KETOROLAC 60 MG/2 ML VIAL. IM ONE (13:00)
== END 2019-09-05 13:04 | disposition home or self-care (01) ==
LOC: ER 11:04
DX: M54.5 Low back pain (principal); J45.909 Unspecified asthma, uncomplicated; K21.9 Gastro-esophageal reflux disease without esophagitis; E78.5 Hyperlipidemia, unspecified; F17.210 Nicotine dependence, cigarettes, uncomplicated; Z90.710 Acquired absence of both cervix and uterus; Z88.0 Allergy status to penicillin; Z88.1 Allergy status to other antibiotic agents; Z88.5 Allergy status to narcotic agent
CPT/HCPCS: 72100; 96372; 99283; J1885

== ENCOUNTER 2019-09-11 10:20 | Emergency (ER) | payer OTHER ==
[~2019-09-11] VITALS: Ht 157.5 cm; Wt 85.6 kg
[~2019-09-11 10:20] MED LIST changes: -ORPH-16 PO; -PRED20TA PO
[2019-09-11] MEDS ORDERED: HYDR-3165 PO (10:49)
[2019-09-11] MEDS ORDERED: ORPH-16 PO (10:49)
--- NOTE | 2019-09-11 10:49 | PHYS DOC ---
Past History Past Medical History: Anxiety, Asthma, Depression, GERD, High Cholesterol, Other Past Surgical History: Hysterectomy Smoking: Cigarettes Alcohol Use: Rarely Drug Use: None Adult General Chief Complaint Chief Complaint: BACK PAIN OR INJURY HPI HPI 43 year old female presents with pain to thoracic back which has been ongoing for the last several days. Reports she has had a cough for the last several weeks. Reports she thinks the coughing might have "thrown her back out.". Denies trauma. Denies rash. Reports movement including twisting and bending make the pain worse. Denies loss of bowel/bladder. Review of Systems Review of Systems Constitutional: Denies fever or chills Eyes: Denies change in visual acuity, redness, or eye pain Respiratory: Reports improving cough; denies shortness of breath Cardiovascular: Denies chest pain or palpitations GI: Denies abdominal pain, nausea, vomiting, or diarrhea : Denies dysuria or hematuria Musculoskeletal: Reports back pain; denies joint pain Integument: Denies rash or skin lesions Neurologic: Denies headache, focal weakness or sensory changes Complete systems were reviewed and found to be within normal limits, except as documented in this note. Allergies Allergies Allergies Coded Allergies Type Severity Reaction Last Updated Verified Penicillins Allergy Mild Rash 08/20/15 Yes doxycycline Allergy Mild Rash 08/20/15 Yes morphine Adverse Reaction Unknown combativeness 08/20/15 Yes Physical Exam Physical Exam Constitutional: Well developed, well nourished, no acute distress, non-toxic appearance HENT: Normocephalic, atraumatic, oropharynx moist, nose normal Eyes: Conjunctiva normal, no discharge Neck: Normal range of motion, no tenderness, supple, no meningeal signs Cardiovascular: Heart rate normal and regular rhythm Lungs & Thorax: Bilateral breath sounds clear to auscultation, no respiratory distress Abdomen: Soft, no tenderness Skin: Warm, dry, no erythema, no rash Back: No midline tenderness, mid thoracic paraspinal tenderness, no CVA tenderness Extremities: No tenderness, ROM intact, no edema Neurologic: Alert and oriented X 3, no focal deficits noted Psychologic: Affect normal, judgement normal EKG EKG [] Radiology/Procedures Radiology/Procedures [] Course & Med Decision Making Course & Med Decision Making Patient presents with HPI and physical exam consistent for musculoskeletal back pain. No midline bony tenderness noted. No history of recent trauma. No loss of bowel/bladder. No rash. Pain addressed. KTRACS noted no recent controlled substances prescribed for pain. Patient stable for discharge home with outpatient follow-up with PCP/Pain management. Pain management referral provided. Discussed findings and plan with patient, who acknowledges understanding and agreement. Dragon Disclaimer Dragon Disclaimer This electronic medical record was generated, in whole or in part, using a voice recognition dictation system. Departure Departure: Impression: Primary Impression: Back pain Disposition: HOME, SELF-CARE Condition: STABLE Referrals: NATI GUADALUPE MD (PCP) Patient Instructions: Back Pain, Adult, [id number] Additional Instructions: Call and make appointment to follow with Dr. Chuck Nunez (pain management) at [facility] at . You may use over the counter Ibuprofen 400mg (2 over the counter tabs) three times daily as needed for pain. May also substitute regular over the counter Acetaminophen (Tylenol) 325mg for your prescribed [place]. Do not take together as [place] has tylenol already in it Scripts Prednisone (PREDNISONE) 20 Mg Tablet 2 TAB PO DAILY for Inflammation, #8 TAB Start this prescription tomorrow, 09/12/19 Prov: DOLLY COLON DO 09/11/19 Hydrocodone Bit/Acetaminophen ([place] 5-325 TABLET) 1 Each Tablet 0.5-1 TAB PO Q6HRS PRN for PAIN, #10 TAB Prov: DOLLY COLON DO 09/11/19 Orphenadrine Citrate (ORPHENADRINE CITRATE) 100 Mg Tablet.er 1 TAB PO BID PRN for MUSCLE PAIN, #14 TAB 0 Refills Prov: DOLLY COLON DO 09/11/19 Problem Qualifiers Primary Impression: Back pain Back pain location: thoracic back pain Chronicity: acute Back pain laterality: bilateral Qualified Codes: M54.6 - Pain in thoracic spine DOLLY COLON DO Sep 11, 2019 10:49
[2019-09-11] MEDS ORDERED: PRED20TA PO (10:51)
[2019-09-11] MEDS ORDERED: DEXAMETHASONE 4 MG TABLET PO ONE (11:00)
[2019-09-11 11:04] VITALS: BP 114/81
== END 2019-09-11 11:04 | disposition home or self-care (01) ==
LOC: ER 10:20
DX: M54.6 Pain in thoracic spine (principal); R05 Cough; J45.909 Unspecified asthma, uncomplicated; K21.9 Gastro-esophageal reflux disease without esophagitis; E78.5 Hyperlipidemia, unspecified; F17.210 Nicotine dependence, cigarettes, uncomplicated; Z90.710 Acquired absence of both cervix and uterus; Z88.0 Allergy status to penicillin; Z88.1 Allergy status to other antibiotic agents; Z88.5 Allergy status to narcotic agent
CPT/HCPCS: 99283; J8540

== ENCOUNTER → 2019-09-11 | Outpatient (CLI) | payer OTHER ==
[2019-09-05 12:58] VITALS: BP 124/80
[~2019-09-11] MED LIST changes: +ORPH-16 PO; +PRED20TA PO
--- NOTE | 2019-09-11 11:09 | RAD ---
EXAM: Chest, 2 views HISTORY: Cough. COMPARISON: 10/26/2018 FINDINGS: 2 views of the chest are obtained. There is no infiltrate, pleural effusion or pneumothorax. The heart is normal in size. IMPRESSION: No acute pulmonary finding. Electronically signed by: Bita Cook MD (09/11/2019 11:07 AM) [facility]
== END | disposition home or self-care (01) ==
LOC: DXRAD 09:54
PROVIDERS: ATTEND Family Medicine
DX: R05 Cough (principal); M62.48 Contracture of muscle, other site; H66.92 Otitis media, unspecified, left ear
CPT/HCPCS: 71046

== ENCOUNTER → 2019-09-27 | Outpatient (CLI) | payer OTHER ==
[2019-09-11 11:04] VITALS: BP 114/81
[~2019-09-27] MED LIST changes: +ORPH-16 PO; +PRED20TA PO
--- NOTE | 2019-09-27 14:20 | RAD ---
KNEE LEFT 3V DATE: 09/27/2019 12:00 AM INDICATION: Knee pain after falling COMPARISON: None. FINDINGS: Bones: There is no evidence of acute fracture or dislocation. Joints: The joint spaces are normal. There is no joint effusion. Miscellaneous: None. IMPRESSION: No evidence of acute fracture. Electronically signed by: Agusto Whitehead MD (09/27/2019 2:17 PM) [facility] [place]
== END ==
LOC: DXRAD 11:16
PROVIDERS: ATTEND Family Medicine
DX: M25.562 Pain in left knee (principal)
CPT/HCPCS: 73562

== ENCOUNTER 2020-04-28 19:33 | Emergency (ER) | payer OTHER ==
[~2020-04-28] VITALS: Ht 157.5 cm; Wt 84.5 kg
[2020-04-28 20:45] VITALS: BP 111/67
--- NOTE | 2020-04-28 21:18 | PHYS DOC ---
Past History Past Medical History: Anxiety, Asthma, Depression, GERD, High Cholesterol Past Surgical History: Hysterectomy Smoking: Cigarettes Alcohol Use: Rarely Drug Use: None General Adult EDM: Chief Complaint: LOWER EXTREMITY SWELLING HPI: HPI: 44-year-old female presents with bilateral lower extremity swelling. Patient was recently placed on Lasix 20 mg as needed for lower extremity swelling. She started this within the last couple weeks. She took 20 yesterday and 20 today. She feels like her swelling is gotten worse today. Her feet are swollen enough that it is painful to walk. She has not been eating much today because she had several teeth pulled. She was just placed on clindamycin. She denies any long car, plane, train rides. No history of DVT or PE in the past. She has no CHF history. She denies fever or chills. Review of Systems: Review of Systems: Constitutional: Denies fever or chills Eyes: Denies change in visual acuity HENT: Denies nasal congestion or sore throat Respiratory: Denies cough or shortness of breath Cardiovascular: Denies chest pain or edema GI: Denies abdominal pain, nausea, vomiting, bloody stools or diarrhea : Denies dysuria Musculoskeletal: Bilateral lower leg swelling Integument: Denies rash Neurologic: Denies headache, focal weakness or sensory changes Endocrine: Denies polyuria or polydipsia Lymphatic: Denies swollen glands Psychiatric: Denies depression or anxiety Heart Score: Risk Factors: Risk Factors: DM, Current or recent (<one month) smoker, HTN, HLP, family history of CAD, obesity. Risk Scores: Score 0 - 3: 2.5% MACE over next 6 weeks - Discharge Home Score 4 - 6: 20.3% MACE over next 6 weeks - Admit for Clinical Observation Score 7 - 10: 72.7% MACE over next 6 weeks - Early Invasive Strategies Allergies: Allergies: Allergies Coded Allergies Type Severity Reaction Last Updated Verified Penicillins Allergy Mild Rash 08/20/15 Yes doxycycline Allergy Mild Rash 08/20/15 Yes morphine Adverse Reaction Unknown combativeness 08/20/15 Yes Physical Exam: PE: Constitutional: Well developed, well nourished, no acute distress, non-toxic appearance. [] HENT: Normocephalic, atraumatic, bilateral external ears normal, oropharynx moist, no oral exudates, nose normal. [] Eyes: PERRLA, EOMI, conjunctiva normal, no discharge. [] Neck: Normal range of motion, no tenderness, supple, no stridor. [] Cardiovascular:Heart rate regular rhythm, no murmur [] Lungs & Thorax: Bilateral breath sounds clear to auscultation [] Abdomen: Bowel sounds normal, soft, no tenderness, no masses, no pulsatile masses. [] Skin: Warm, dry, no erythema, no rash. [] Back: No tenderness, no CVA tenderness. [] Extremities: No tenderness, no cyanosis, no clubbing, ROM intact. Bilateral lower legs with 2+ nonpitting edema to the knees. No sign of cellulitis. [] Neurologic: Alert and oriented X 3, normal motor function, normal sensory fu nction, no focal deficits noted. [] Psychologic: Affect normal, judgement normal, mood normal. [] Current Patient Data: Vital Signs: Vital Signs Date Time Temp Pulse Resp B/P (MAP) Pulse Ox O2 Delivery O2 Flow Rate FiO2 04/28/20 20:45 92 18 111/67 (82) 96 EKG: EKG: Sinus rhythm, rate 81, normal axis, no ST elevations or depressions. [] Radiology/Procedures: Radiology/Procedures: [] Impressions: Exam: Chest one view INDICATION: Extremity swelling TECHNIQUE: Frontal view of the chest Comparisons: 09/11/2019 FINDINGS: The cardiomediastinal silhouette and pulmonary vessels are within normal limits. The lung and pleural spaces are clear. IMPRESSION: No acute cardiopulmonary process. Electronically signed by: Rajan Moss MD (04/28/2020 9:42 PM) [facility] DICTATED AND SIGNED BY: RAJAN MOSS MD DATE: 04/28/202141 CC: NATALI ARROYO DO; NATI GUADALUPE MD ~ Course & Med Decision Making: Course & Med Decision Making Pertinent Labs and Imaging studies reviewed. (See chart for details) The patient's chest x-ray is unremarkable. Her EKG is unremarkable. The patient's labs are unremarkable. I do not see any results that are concerning. I believe this extra swelling is likely that good to in excess of sodium or due to her dental infection. I have advised that she can take her Lasix twice a day for couple days to see if this helps. She is stable for discharge at this time. [] Dragon Disclaimer: Adriana Disclaimer: This electronic medical record was generated, in whole or in part, using a voice recognition dictation system. Departure Departure: Impression: Primary Impression: Swelling of lower extremity Disposition: HOME/RESIDENCE PRIOR TO ADM Condition: STABLE Referrals: NATI GUADALUPE MD (PCP) Patient Instructions: Peripheral Edema Additional Instructions: You can take Lasix twice a day for couple days to see if this improves her swelling. If not, follow-up with your primary care physician for further guidance. NATALI ARROYO DO Apr 28, 2020 21:18
--- NOTE | 2020-04-28 21:45 | RAD ---
Exam: Chest one view INDICATION: Extremity swelling TECHNIQUE: Frontal view of the chest Comparisons: 09/11/2019 FINDINGS: The cardiomediastinal silhouette and pulmonary vessels are within normal limits. The lung and pleural spaces are clear. IMPRESSION: No acute cardiopulmonary process. Electronically signed by: Rajan Orellana MD (04/28/2020 9:42 PM) [facility]
[2020-04-28 21:49] LABS: BASO # 0.1 x10^3/uL (0.0-0.2); BASO % 1 % (0-3); EOS # 0.4 x10^3/uL (0.0-0.7); EOS % 6 % (0-3); HEMATOCRIT 40.3 % (36.0-47.0); HEMOGLOBIN 13.2 g/dL (12.0-15.5); LYMPH # 2.8 x10^3/uL (1.0-4.8); LYMPH % 40 % (24-48); MEAN CORPUSCULAR HEMOGLOBIN 31 pg (25-35); MEAN CORPUSCULAR HGB CONC 33 g/dL (31-37); MEAN CORPUSCULAR VOLUME 94 fL (79-100); MONO # 0.6 x10^3/uL (0.0-1.1); MONO % 9 % (0-9); NEUT # 3.2 x10^3uL (1.8-7.7); NEUT % 45 % (31-73); PLATELET COUNT 285 x10^3/uL (140-400); RED BLOOD COUNT 4.29 x10^6/uL (3.50-5.40); RED CELL DISTRIBUTION WIDTH 13.6 % (11.5-14.5); WHITE BLOOD COUNT 7.1 x10^3/uL (4.0-11.0)
[2020-04-28 21:59] LABS: CALCIUM 9.1 mg/dL (8.5-10.1); CREATININE 1.2 mg/dL (0.6-1.0); POTASSIUM 3.6 mmol/L (3.5-5.1)
[2020-04-28 22:10] LABS: BILIRUBIN,URINE NEG (NEG); CLARITY,URINE CLEAR; COLOR,URINE STRAW; GLUCOSE,URINE NEG (NEG)
[2020-04-28 22:11] LABS: BACTERIA,URINE 0 /HPF (0-FEW); NITRITE,URINE NEG (NEG); RBC,URINE RARE /HPF (0-2); SQUAMOUS EPITHELIAL CELL,UR FEW /LPF; UROBILINOGEN,URINE 0.2 mg/dL (0.2 mg/dL); WBC,URINE 0 /HPF (0-4)
[2020-04-28 22:11] LABS: ALBUMIN 3.9 g/dL (3.4-5.0); ALBUMIN/GLOBULIN RATIO 1.1 (1.0-1.7); TOTAL BILIRUBIN 0.2 mg/dL (0.2-1.0); TOTAL PROTEIN 7.4 g/dL (6.4-8.2)
--- NOTE | 2020-04-28 23:43 | EKG ---
[address] [address] Test Date: 2020-04-28 Test Time: 21:23:04 Pat Name: RIVAS VICENTE Department: Room: Gender: F [employer] Driver: : 1975 Requested By: NATALI ARROYO Order Number: [id number] Reading MD: Measurements Intervals [place] Rate: 81 P: 41 [place]: 164 QRS: 21 QRSD: 88 T: 24 QT: 402 QTc: 473 Interpretive Statements SINUS RHYTHM NORMAL ECG RI6.02 No previous ECG available for comparison
== END 2020-04-28 23:37 | disposition home or self-care (01) ==
LOC: ER 19:33
DX: R60.0 Localized edema (principal); J45.909 Unspecified asthma, uncomplicated; K21.9 Gastro-esophageal reflux disease without esophagitis; E78.00 Pure hypercholesterolemia, unspecified; F17.210 Nicotine dependence, cigarettes, uncomplicated; Z88.0 Allergy status to penicillin; Z88.1 Allergy status to other antibiotic agents; Z88.5 Allergy status to narcotic agent
CPT/HCPCS: 36415; 71045; 80053; 81001; 83880; 85025; 93005; 99285-25

== ENCOUNTER → 2020-06-11 | Outpatient (CLI) | payer OTHER ==
--- NOTE | 2020-06-16 10:37 | RAD ---
Limited left breast ultrasound. INDICATION: Screening recall for mass in the anterior medial left breast. Patient denies any palpable mass. COMPARISON: Bilateral screening mammogram of 04/28/2020. TECHNIQUE: Grayscale ultrasound imaging of the left breast at the upper outer quadrant was performed along with sonographic survey of the left axilla. FINDINGS: An oval, slightly irregular margined 6 mm mass at the left 10:00 position 4 cm from the nipple is present. This correlates with the mammographic finding recalled from screening and recommended for additional imaging. Sonographic survey of the left axilla reveals no adenopathy. IMPRESSION: A 6 mm mass in the superficial left breast is of low suspicion for malignancy but is suspicious and recommended for ultrasound-guided core needle biopsy. BI-RADS Category 4 Findings suspicious for malignancy. Biopsy recommended. Discussed with Mary, head nurse at Dr. Cabezas's office by telephone at 10:32 AM on 06/16/2020. She has requested a copy of this report be faxed to her office. I have requested our mammography staff to assist with faxing the report. Electronically signed by: Jarrett Mcgee MD (06/16/2020 10:34 AM) [id number]
== END ==
LOC: US 14:03
PROVIDERS: ATTEND Family Medicine
DX: N63.22 Unspecified lump in the left breast, upper inner quadrant (principal)
CPT/HCPCS: 76641

== ENCOUNTER → 2020-12-31 | Outpatient (CLI) | payer OTHER ==
[~2020-12-31] MED LIST changes: -CLIN300C8 PO; +CLIN300C9 PO; +MIRT-7 PO; -MIRT15TA3 PO; -OMEP40CA45 PO; +OMEP40CA7 PO
--- NOTE | 2020-12-31 15:41 | NUR ---
NURSING NOTE BLADDER SCAN PRE-VOID SCAN APPROX 185 VOID 200 POST-VOID SCAN APPROX 0
== END | disposition home or self-care (01) ==
LOC: OPINF 15:26
PROVIDERS: ATTEND Family Medicine
DX: N39.42 Incontinence without sensory awareness (principal); I10 Essential (primary) hypertension; E78.5 Hyperlipidemia, unspecified; F41.9 Anxiety disorder, unspecified; F32.9 Major depressive disorder, single episode, unspecified; G43.909 Migraine, unspecified, not intractable, without status migrainosus; K21.9 Gastro-esophageal reflux disease without esophagitis; J45.909 Unspecified asthma, uncomplicated; Z88.0 Allergy status to penicillin; Z90.710 Acquired absence of both cervix and uterus; Z87.442 Personal history of urinary calculi; Z87.891 Personal history of nicotine dependence; Z88.1 Allergy status to other antibiotic agents; Z88.5 Allergy status to narcotic agent
CPT/HCPCS: 51798

== ENCOUNTER 2021-06-06 10:40 | Emergency (ER) | payer OTHER ==
[~2021-06-06] VITALS: Ht 157.5 cm; Wt 84.5 kg
[~2021-06-06 10:40] MED LIST changes: +CLIN-95 PO; -CLIN300C9 PO; -CYCL-331 PO; +CYCL10TA19 PO; -DULO60CA6 PO; +DULO60CA7 PO
[2021-06-06 11:13] VITALS: BP 137/80
[2021-06-06] MEDS ORDERED: HYDROcodone/APAP 5/325MG 1 TAB TABLET PO ONE (11:15)
[2021-06-06] MEDS ORDERED: CYCLOBENZAPRINE 10 MG TABLET. PO ONE (11:15)
[2021-06-06] MEDS ORDERED: ASPIRIN 325 MG TABLET PO ONE (11:15)
--- NOTE | 2021-06-06 11:25 | EKG ---
[address] [address] Test Date: 2021-06-06 Test Time: 11:16:55 Pat Name: RIVAS VICENTE Department: Room: Gender: F [employer] Supervisor: ALEJANDRO : 1975 Requested By: MARCELINO BELLA Order Number: [id number] Reading MD: Charlie Oglesby MD Measurements Intervals [place] Rate: 100 P: 41 [place]: 158 QRS: 4 QRSD: 82 T: 37 QT: 328 QTc: 426 Interpretive Statements SINUS RHYTHM Electronically Signed On 06-06-2021 13:36:46 CERTIFIED PERSONAL CHEF by Charlie Oglesby MD
--- NOTE | 2021-06-06 11:28 | PHYS DOC ---
Past History Past Medical History: Anxiety, Asthma, Depression, GERD, High Cholesterol (MARCELINO BELLA APRN) Past Surgical History: Hysterectomy (MARCELINO BELLA APRN) Smoking: Cigarettes Alcohol Use: Rarely Drug Use: None (MARCELINO BELLA APRN) Adult General Chief Complaint Chief Complaint: SHOULDER INJURY HPI HPI Patient is a 45-year-old female patient with history of high cholesterol, anxiety, depression who presents to the ED today complaining of 8 out of 10 left shoulder pain, patient states pain began 2 weeks ago after she lifted a box. Patient states the pain is radiating to the left upper extremity with tingling to the left pinky and ring fingers. Patient denies any pain radiating to the neck. (MARCELINO BELLA APRN) Review of Systems Review of Systems Constitutional: Denies fever or chills [] Eyes: Denies change in visual acuity, redness, or eye pain [] HENT: Denies nasal congestion or sore throat [] Respiratory: Denies cough or shortness of breath [] Cardiovascular: No additional information not addressed in HPI [] GI: Denies abdominal pain, nausea, vomiting, bloody stools or diarrhea [] : Denies dysuria or hematuria [] Musculoskeletal: Reports left shoulder pain Integument: Denies rash or skin lesions [] Neurologic: Denies headache, focal weakness or sensory changes [] All other systems were reviewed and found to be within normal limits, except as documented in this note. (MARCELINO BELLA APRN) Current Medications Current Medications Current Medications Medications (Trade) Dose Ordered Sig/Uriah Start Time Stop Time Status Last Admin Dose Admin Acetaminophen/ Hydrocodone Bitart (Lortab 5/325) 2 tab 1X ONCE 06/06/21 11:15 06/06/21 11:18 DC Aspirin (Casey Aspirin) 325 mg 1X ONCE 06/06/21 11:15 06/06/21 11:18 DC Cyclobenzaprine HCl (Flexeril) 10 mg 1X ONCE 06/06/21 11:15 06/06/21 11:18 DC (MARCELINO BELLA APRN) Allergies Allergies Allergies Coded Allergies Type Severity Reaction Last Updated Verified Penicillins Allergy Mild Rash 08/20/15 Yes doxycycline Allergy Mild Rash 08/20/15 Yes morphine Adverse Reaction Unknown combativeness 08/20/15 Yes (MARCELINO BELLA APRN) Physical Exam Physical Exam Constitutional: Well developed, well nourished, no acute distress, non-toxic appearance. [] HENT: Normocephalic, atraumatic, bilateral external ears normal, oropharynx moist, no oral exudates, nose normal. [] Eyes: PERRLA, EOMI, conjunctiva normal, no discharge. [] Neck: Normal range of motion, no tenderness, supple, no stridor. [] Cardiovascular:Heart rate regular rhythm, no murmur [] Lungs & Thorax: Bilateral breath sounds clear to auscultation [] Abdomen: Bowel sounds normal, soft, no tenderness, no masses, no pulsatile masses. [] Skin: Warm, dry, no erythema, no rash. [] Back: No tenderness, no CVA tenderness. [] Extremities: Left upper extremity with no tenderness full passive range of motion to the left wrist with radial, medial, ulnar sensation to the left upper extremity. +2 left radial pulse less than 2 seconds to left fingers Neurologic: Alert and oriented X 3, normal motor function, normal sensory function, no focal deficits noted. [] Psychologic: Affect normal, judgement normal, mood normal. [] (MARCELINO BELLA APRN) EKG EKG [address] Tavares sinus rhythm heart rate 100 no STEMI [] (MARCELINO BELLA APRN) Radiology/Procedures Radiology/Procedures []PROCEDURE: SHOULDER 2+V LEFT Left shoulder 3 views. HISTORY: Pain 3 views were taken of the left shoulder. There is not evidence of a fracture or dislocation or acute osseous abnormality. IMPRESSION: 1. Negative left shoulder. Electronically signed by: Tiago Hopkins MD (06/06/2021 12:05 PM) [facility] DICTATED AND SIGNED BY: TIAGO HOPKINS MD DATE: 06/06/21 1204 CC: NATI GUADALUPE MD; MARCELINO BELLA APRN ~MTH0 0 (MARCELINO BELLA APRN) Heart Score C/O Chest Pain: N/A Risk Factors: Risk Factors: DM, Current or recent (<one month) smoker, HTN, HLP, family history of CAD, obesity. Risk Scores: Risk Factors: DM, Current or recent (<one month) smoker, HTN, HLP, family hist ory of CAD, obesity. (MARCELINO BELLA APRN) Course & Med Decision Making Course & Med Decision Making Pertinent Labs and Imaging studies reviewed. (See chart for details) This is a 45-year-old female patient presented to the ED today with complaints of left shoulder pain that began 2 weeks ago after lifting a box. EKG is negative. Left shoulder x-rays interpreted by radiologist were negative for any acute findings, discharged home, follow-up with orthopedic doctor in 1 week. (MARCELINO BELLA APRN) Course & Med Decision Making I was the Attending physician on the above date of service of this patient. This patient was evaluated, examined, treated, and dispositioned from the emergency department by the mid-level practitioner. Although I was working at the time , no assistance was requested. Electronically signed, Kirit Tavares DO (KIRIT TAVARES DO) Adriana Disclaimer Dragon Disclaimer This electronic medical record was generated, in whole or in part, using a voice recognition dictation system. (MARCELINO BELLA APRN) Departure Departure: Impression: Primary Impression: Left shoulder pain Disposition: HOME / SELF CARE / HOMELESS Condition: STABLE Referrals: NATI GUADALUPE MD (PCP) JANIS FERNÁNDEZ Jr. DO Follow-up in 1 week Patient Instructions: Shoulder Pain, [id number] Additional Instructions: You were seen for left shoulder pain, your left shoulder x-rays were negative for any acute findings. Follow-up with your primary care doctor in 1 week, also follow-up with the provided orthopedic doctor Scripts Cyclobenzaprine Hcl (CYCLOBENZAPRINE HCL) 10 Mg Tablet 1 TAB PO TID, #30 TAB Prov: MARCELINO BELLA Emeterio GREEN 06/06/21 Problem Qualifiers Primary Impression: Left shoulder pain Chronicity: acute Qualified Codes: M25.512 - Pain in left shoulder LILIMARCELINO ROCA Emeterio GREEN Jun 06, 2021 11:28 KIRIT TAVARES DO Jun 08, 2021 06:55
--- NOTE | 2021-06-06 12:07 | RAD ---
Left shoulder 3 views. HISTORY: Pain 3 views were taken of the left shoulder. There is not evidence of a fracture or dislocation or acute osseous abnormality. IMPRESSION: 1. Negative left shoulder. Electronically signed by: Tiago Hopkins MD (06/06/2021 12:05 PM) [facility]
[2021-06-06] MEDS ORDERED: CYCL10TA19 PO (12:40)
== END 2021-06-06 12:45 | disposition home or self-care (01) ==
LOC: ER 10:40
DX: M25.512 Pain in left shoulder (principal); R20.2 Paresthesia of skin; J45.909 Unspecified asthma, uncomplicated; K21.9 Gastro-esophageal reflux disease without esophagitis; E78.00 Pure hypercholesterolemia, unspecified; F41.9 Anxiety disorder, unspecified; F17.210 Nicotine dependence, cigarettes, uncomplicated; Z88.0 Allergy status to penicillin; Z88.1 Allergy status to other antibiotic agents; Z88.5 Allergy status to narcotic agent
CPT/HCPCS: 73030; 93005; 99284

== ENCOUNTER → 2021-11-18 | Outpatient (CLI) | payer OTHER ==
--- NOTE | 2021-11-19 11:39 | RAD ---
XR KNEE _3 VIEWS_LT History: Reason: CHRONIC PAIN, NKI, HX LT KNEE SURGERY. / Spl. Instructions: / History: Technique: 3 views left knee Comparison: None. Findings: No dislocation. No acute fracture. Mild patellar spurring. No significant knee joint effusion. Impression: 1. No acute osseous abnormality. Electronically signed by: Vin Oro DO (11/19/2021 11:37 AM) [id number]
== END ==
LOC: RAD 16:05
PROVIDERS: ATTEND Orthopaedic Surgery
DX: M76.892 Other specified enthesopathies of left lower limb, excluding foot (principal)
CPT/HCPCS: 73562

== ENCOUNTER → 2021-12-16 | Outpatient (CLI) | payer OTHER ==
[2021-12-16 10:32] LABS: BASO % 1 % (0-3); EOS # 0.3 x10^3/uL (0.0-0.7); EOS % 4 % (0-3); HEMATOCRIT 39.5 % (36.0-47.0); HEMOGLOBIN 12.9 g/dL (12.0-15.5); LYMPH % 40 % (24-48); MEAN CORPUSCULAR HEMOGLOBIN 30 pg (25-35); MEAN CORPUSCULAR HGB CONC 33 g/dL (31-37); MEAN CORPUSCULAR VOLUME 93 fL (79-100); MONO # 0.6 x10^3/uL (0.0-1.1); MONO % 8 % (0-9); NEUT # 3.5 x10^3uL (1.8-7.7); NEUT % 48 % (31-73); PLATELET COUNT 282 x10^3/uL (140-400); RED BLOOD COUNT 4.26 x10^6/uL (3.50-5.40); RED CELL DISTRIBUTION WIDTH 15.2 % (11.5-14.5); WHITE BLOOD COUNT 7.5 x10^3/uL (4.0-11.0)
[2021-12-16 10:42] LABS: ALBUMIN 3.4 g/dL (3.4-5.0); ALBUMIN/GLOBULIN RATIO 1.3 (1.0-1.7); CALCIUM 8.8 mg/dL (8.5-10.1); CREATININE 1.1 mg/dL (0.6-1.0); GFR 53.7; POTASSIUM 4.1 mmol/L (3.5-5.1); TOTAL BILIRUBIN 0.3 mg/dL (0.2-1.0); TOTAL PROTEIN 6.1 g/dL (6.4-8.2)
[2021-12-16 16:55] LABS: CHOLESTEROL/HDL RATIO 3.5; FREE T4 0.83 ng/dL (0.76-1.46)
[2021-12-16 16:56] LABS: THYROID STIM HORMONE (TSH) 4.35 uIU/mL (0.358-3.740)
[2021-12-17 00:10] LABS: HEMOGLOBIN A1C 5.4 % (4.8-5.6)
== END ==
LOC: LAB 08:21
PROVIDERS: ATTEND Nurse Practitioner Family
DX: Z79.899 Other long term (current) drug therapy (principal)
CPT/HCPCS: 36415; 80053; 80061; 83036; 84439; 84443; 84480; 85025